=== PATIENT | female | born 1960 | race Caucasian/White ===

== ENCOUNTER 2016-12-02 01:11 | Emergency (ER) | payer BC ==
[~2016-12-02] VITALS: Ht 154.9 cm; Wt 77.0 kg
[~2016-12-02 01:11] MED LIST: ALBUTEROL SUL0.083 % IN; BACLOFEN10 MG PO; BUPAP 50-300 MG1 TAB PO; BUTALBITAL/APAP1 CAP PO; DULERA1 AE1 IN; DYMISTA1 SPR; FAMOTIDINE20 M1 PO; FLUTICASONE50 MCG; GABAPENTIN300 MG PO; KEFLEX500 M1 PO; LAMICTAL ODT50 MG PO; LAMOTRIGINE ODT50 MG PO; LORTAB 10-325 M1 TAB PO; MEDDOSEPAK PO; NAPROSYN500 MG PO; PANTOPRAZOLE SO40 MG PO; PREDNISONE20 MG PO; PROAIR HFA IN; PROPANOLOL PO; ROBITUSSIN AC10 ML PO; SINGULAIR PO; TOPAMAX50 M1 PO; TOPAMAX50 MG PO; VALTREX500 MG PO; XOPENEX HFA IN; ZOFRAN ODT4 MG PO; ZOFRAN ODT4 MG SL
[2016-12-02] MEDS ORDERED: INDERAL 40MG TA40 MG PO (01:34)
[2016-12-02] MEDS ORDERED: PEPCID AC20 MG PO (01:36)
[2016-12-02 02:18] LABS: URINE BILIRUBIN - DIPSTICK NEGATIVE (NEGATIVE); URINE BLOOD DIPSTICK MODERATE (NEGATIVE); URINE CLARITY TURBID; URINE COLOR RED; URINE GLUCOSE - DIPSTICK NEGATIVE (NEGATIVE); URINE KETONE NEGATIVE (NEGATIVE); URINE NITRITE - DIPSTICK NEGATIVE (Negative); URINE PROTEIN - DIPSTICK 100 mg/dL (NEG-TRACE); URINE SPECIFIC GRAVITY >=1.030; URINE UROBILINOGEN - DIPSTICK 0.2 E.U./dL (0.2)
[2016-12-02 02:19] LABS: URINE LEUK ESTERASE SMALL (NEGATIVE)
[2016-12-02 02:21] LABS: URINE BACTERIA FEW hpf; URINE RBC >100 RBC/hpf (0-5); URINE SQUAMOUS EPITHELIAL CELL FEW EPI/hpf (0-FEW)
[2016-12-02] MEDS ORDERED: PYRIDIUM200 MG PO (02:39)
[2016-12-02] MEDS ORDERED: CIPROFLOXACN500 MG PO (02:39)
[2016-12-02 02:50] VITALS: BP 136/95
[2016-12-02] MEDS ORDERED: ZOFRAN ODT4 MG PO (02:53)
== END 2016-12-02 02:50 | disposition home or self-care (01) | DRG 690 ==
LOC: ED 01:11
PROVIDERS: Emergency Medicine
DX: N39.0 Urinary tract infection, site not specified (principal); B96.20 Unspecified Escherichia coli [E. coli] as the cause of diseases classified elsewhere; R30.0 Dysuria; R35.0 Frequency of micturition

== ENCOUNTER 2017-03-17 17:28 | Emergency (ER) | payer BC ==
[~2017-03-17] VITALS: Ht 154.9 cm; Wt 77.0 kg
[~2017-03-17 17:28] MED LIST changes: +CIPROFLOXACN500 MG PO; +INDERAL 40MG TA40 MG PO; +PEPCID AC20 MG PO; +PYRIDIUM200 MG PO
[2017-03-17] MEDS ORDERED: NAPROSYN500 MG PO (18:25)
[2017-03-17] MEDS ORDERED: NORCO1 TA1 PO (18:25)
== END 2017-03-17 18:43 | disposition home or self-care (01) | DRG 554 ==
LOC: ED 17:28
DX: M19.041 Primary osteoarthritis, right hand (principal); I10 Essential (primary) hypertension; J45.909 Unspecified asthma, uncomplicated; G50.0 Trigeminal neuralgia

== ENCOUNTER 2017-08-06 13:29 | Emergency (ER) | payer OTHER, BC ==
[~2017-08-06] VITALS: Ht 154.9 cm; Wt 74.0 kg
[~2017-08-06 13:29] MED LIST changes: +NORCO1 TA1 PO
[2017-08-06] MEDS ORDERED: BENZONATATE200 MG PO (14:02)
[2017-08-06] MEDS ORDERED: BLOOD PRESSURE (14:03)
[2017-08-06 14:20] LABS: HEMATOCRIT 43.2 % (37.0-47.0); HEMOGLOBIN 14.3 g/dl (12.0-16.0); IMMATURE GRANULOCYTES 0.3 % (0.0-1.0); MEAN CELL VOLUME 91.7 fL CALC (80.0-100.0); MEAN CORPUSCULAR HGB 30.4 pG CALC (26.0-32.0); MEAN CORPUSCULAR HGB CONC 33.1 g/L CALC (32.0-36.0); NEUT# 3.68 thou/uL (2.00-7.15); RED BLOOD COUNT 4.71 mill/uL (4.20-5.60); RED CELL DISTRI WIDTH 13.6 % (11.5-15.5)
[2017-08-06 14:34] LABS: ANION GAP 17 (6-22 (CALC)); BUN 23 mg/dL (7-17); BUN/CREATININE RATIO 27 (12-20 (CALC)); CALCIUM 10.1 mg/dL (8.4-10.2); CARBON DIOXIDE 25 mmol/l (22-30); CHLORIDE 105 mmol/l (95-108); CREATININE 0.8 mg/dL (0.5-1.0); GFR > 60 ML/MIN (>=60 (CALC)); GFR FOR AFR.AMER. > 60 ML/MIN (>=60 (CALC)); GLUCOSE 157 mg/dL (65-105); POTASSIUM 3.5 mmol/l (3.5-5.1); SODIUM 144 mmol/l (137-146)
[2017-08-06] MEDS ORDERED: PREDNISONE50 MG PO (16:53)
[2017-08-06 17:15] VITALS: BP 122/65
== END 2017-08-06 17:15 | disposition home or self-care (01) | DRG 916 ==
LOC: ED 13:29
PROVIDERS: Family Medicine
DX: T78.2XXA Anaphylactic shock, unspecified, initial encounter (principal); R06.02 Shortness of breath; T78.49XA Other allergy, initial encounter; X58.XXXA Exposure to other specified factors, initial encounter; R11.0 Nausea; R50.9 Fever, unspecified

== ENCOUNTER 2017-11-17 15:48 | Emergency (ER) | payer BC ==
[~2017-11-17] VITALS: Ht 154.9 cm; Wt 74.4 kg
[~2017-11-17 15:48] MED LIST changes: +BENZONATATE200 MG PO; +BLOOD PRESSURE; +PREDNISONE50 MG PO
[2017-11-17] MEDS ORDERED: CIMETIDINE400 M1 PO (15:59)
[2017-11-17] MEDS ORDERED: PREDNISONE50 MG PO (15:59)
[2017-11-17] MEDS ORDERED: BENADRYL 50MG C50 MG PO (15:59)
[2017-11-17] MEDS ORDERED: ALBUTEROL SUL0.083 % IN (17:01)
[2017-11-17 17:25] VITALS: BP 137/92
== END 2017-11-17 17:25 | disposition home or self-care (01) | DRG 206 ==
LOC: ED 15:48
DX: J68.3 Other acute and subacute respiratory conditions due to chemicals, gases, fumes and vapors (principal); I10 Essential (primary) hypertension; J45.909 Unspecified asthma, uncomplicated; K21.9 Gastro-esophageal reflux disease without esophagitis

== ENCOUNTER 2018-01-22 03:33 | Emergency (ER) | payer BC ==
[~2018-01-22] VITALS: Ht 154.9 cm; Wt 72.8 kg
[~2018-01-22 03:33] MED LIST changes: +BENADRYL 50MG C50 MG PO; +CIMETIDINE400 M1 PO
[2018-01-22] MEDS ORDERED: ZYRTEC10 MG PO (03:47)
[2018-01-22] MEDS ORDERED: TIZANIDINE4 MG PO (03:47)
[2018-01-22 04:24] LABS: HEMATOCRIT 43.5 % (37.0-47.0); HEMOGLOBIN 14.4 g/dl (12.0-16.0); IMMATURE GRANULOCYTES 0.3 % (0.0-1.0); MEAN CELL VOLUME 92.4 fL CALC (80.0-100.0); MEAN CORPUSCULAR HGB 30.6 pG CALC (26.0-32.0); MEAN CORPUSCULAR HGB CONC 33.1 g/L CALC (32.0-36.0); NEUT# 4.19 thou/uL (2.00-7.15); RED BLOOD COUNT 4.71 mill/uL (4.20-5.60)
--- NOTE | 2018-01-22 04:27 | NUR ---
BREATHING TREATMENT GIVEN. BREATHING TECH. FOR GOOD DEPOSITION TO THE LUNGS. SPO2 98% ON RA, H RATE 78.
[2018-01-22] MEDS ORDERED: PREDNISONE10 MG PO (05:14)
[2018-01-22] MEDS ORDERED: TESSALON PERLE100 MG PO (05:23)
[2018-01-22 05:33] VITALS: BP 139/87
== END 2018-01-22 05:33 | disposition home or self-care (01) | DRG 153 ==
LOC: ED 03:33
PROVIDERS: Family Medicine
DX: J06.9 Acute upper respiratory infection, unspecified (principal); J45.901 Unspecified asthma with (acute) exacerbation; I10 Essential (primary) hypertension; K21.9 Gastro-esophageal reflux disease without esophagitis

== ENCOUNTER 2018-08-03 14:57 | Emergency (ER) | payer OTHER, BC ==
[~2018-08-03] VITALS: Ht 154.9 cm; Wt 75.0 kg
[~2018-08-03 14:57] MED LIST changes: +PREDNISONE10 MG PO; +TESSALON PERLE100 MG PO; +TIZANIDINE4 MG PO; +ZYRTEC10 MG PO
[2018-08-03 15:30] LABS: HEMATOCRIT 46.2 % (37.0-47.0); HEMOGLOBIN 15.4 g/dl (12.0-16.0); IMMATURE GRANULOCYTES 0.4 % (0.0-5.0); MEAN CELL VOLUME 94.3 fL CALC (80.0-100.0); MEAN CORPUSCULAR HGB 31.4 pG CALC (26.0-32.0); MEAN CORPUSCULAR HGB CONC 33.3 g/L CALC (32.0-36.0); NEUT# 2.41 thou/uL (2.00-7.15); RED BLOOD COUNT 4.9 mill/uL (4.20-5.60); RED CELL DISTRI WIDTH 13.2 % (11.5-15.5)
[2018-08-03 15:40] LABS: BUN 23 mg/dL (7-17); BUN/CREATININE RATIO 26 (12-20 (CALC)); CARBON DIOXIDE 24 mmol/l (22-30); CHLORIDE 109 mmol/l (95-108); CREATININE 0.9 mg/dL (0.5-1.0); GFR > 60 ML/MIN (>=60 (CALC)); GFR FOR AFR.AMER. > 60 ML/MIN (>=60 (CALC)); SODIUM 144 mmol/l (137-146)
[2018-08-03 15:41] LABS: ANION GAP 15 (6-22 (CALC)); POTASSIUM 4.4 mmol/l (3.5-5.1)
[2018-08-03 16:55] VITALS: BP 114/81
== END 2018-08-03 17:00 | disposition home or self-care (01) | DRG 916 ==
LOC: ED 14:57
PROVIDERS: Family Medicine
DX: T78.2XXA Anaphylactic shock, unspecified, initial encounter (principal); T78.49XA Other allergy, initial encounter; R06.02 Shortness of breath; Y92.219 Unspecified school as the place of occurrence of the external cause; Y99.0 Civilian activity done for income or pay

== ENCOUNTER 2018-08-27 12:20 | Emergency (ER) | payer BC ==
[~2018-08-27] VITALS: Ht 154.9 cm; Wt 77.0 kg
[2018-08-27 13:04] LABS: HEMATOCRIT 43.6 % (37.0-47.0); HEMOGLOBIN 14.5 g/dl (12.0-16.0); IMMATURE GRANULOCYTES 0.5 % (0.0-5.0); MEAN CELL VOLUME 95.2 fL CALC (80.0-100.0); MEAN CORPUSCULAR HGB 31.7 pG CALC (26.0-32.0); MEAN CORPUSCULAR HGB CONC 33.3 g/L CALC (32.0-36.0); NEUT# 2.14 thou/uL (2.00-7.15); RED BLOOD COUNT 4.58 mill/uL (4.20-5.60); RED CELL DISTRI WIDTH 13.2 % (11.5-15.5)
[2018-08-27 13:21] LABS: ALBUMIN 4.5 g/dL (3.2-5.0); ALKALINE PHOSPHATASE 110 u/l (38-126); ANION GAP 15 (6-22 (CALC)); BILIRUBIN, TOTAL 0.6 mg/dL (0.0-1.4); BUN 18 mg/dL (7-17); BUN/CREATININE RATIO 19 (12-20 (CALC)); CARBON DIOXIDE 24 mmol/l (22-30); CHLORIDE 106 mmol/l (95-108); CREATININE 0.9 mg/dL (0.5-1.0); GFR > 60 ML/MIN (>=60 (CALC)); GFR FOR AFR.AMER. > 60 ML/MIN (>=60 (CALC)); POTASSIUM 3.7 mmol/l (3.5-5.1); SGOT/AST 30 u/l (14-36); SODIUM 142 mmol/l (137-146); TOTAL PROTEIN 7.2 g/dL (6.3-8.2)
[2018-08-27 14:32] LABS: URINE BILIRUBIN - DIPSTICK NEGATIVE (NEGATIVE); URINE BLOOD DIPSTICK LARGE (NEGATIVE); URINE COLOR YELLOW; URINE GLUCOSE - DIPSTICK NEGATIVE (NEGATIVE); URINE KETONE NEGATIVE (NEGATIVE); URINE LEUK ESTERASE NEGATIVE (NEGATIVE); URINE NITRITE - DIPSTICK NEGATIVE (Negative); URINE PH 6.5 (4.5-8.0); URINE PROTEIN - DIPSTICK NEGATIVE (NEG-TRACE); URINE SPECIFIC GRAVITY <=1.005; URINE UROBILINOGEN - DIPSTICK 0.2 E.U./dL (0.2)
[2018-08-27 14:53] LABS: URINE RBC TNTC RBC/hpf (0-5); URINE SQUAMOUS EPITHELIAL CELL FEW EPI/hpf (0-FEW)
[2018-08-27] MEDS ORDERED: LISINOPRIL20 MG PO (15:19)
[2018-08-27] MEDS ORDERED: LOPRESSOR25 M1 PO (15:19)
[2018-08-27] MEDS ORDERED: SOMA CPD PO (15:19)
[2018-08-27 15:29] VITALS: BP 139/87
== END 2018-08-27 15:37 | disposition home or self-care (01) | DRG 305 ==
LOC: ED 12:20
PROVIDERS: Emergency Medicine
DX: I10 Essential (primary) hypertension (principal); R51 Headache; J45.909 Unspecified asthma, uncomplicated; G50.0 Trigeminal neuralgia; K21.9 Gastro-esophageal reflux disease without esophagitis

== ENCOUNTER → 2018-09-14 | Outpatient (REF) | payer SELFPAY ==
[~2018-09-14] MED LIST changes: +ALLERGY RE50 MCG/ACT; +FIORICET PO; +LISINOPRIL20 MG PO; +LOPRESSOR25 M1 PO; +METOPROL TAR25 M1 PO; +OMEPRAZOLE20 M1 PO; +PROMETHAZINE12.5 MG PO; +SOMA CPD PO
[2018-09-14 17:21] LABS: HEMATOCRIT 45.4 % (37.0-47.0); HEMOGLOBIN 14.6 g/dl (12.0-16.0); IMMATURE GRANULOCYTES 0.2 % (0.0-5.0); MEAN CELL VOLUME 96.4 fL CALC (80.0-100.0); MEAN CORPUSCULAR HGB CONC 32.2 g/L CALC (32.0-36.0); NEUT# 3.05 thou/uL (2.00-7.15); RED BLOOD COUNT 4.71 mill/uL (4.20-5.60); RED CELL DISTRI WIDTH 12.2 % (11.5-15.5)
[2018-09-14 17:45] LABS: ANION GAP 17 (6-22 (CALC)); BUN 20 mg/dL (7-17); BUN/CREATININE RATIO 24 (12-20 (CALC)); CARBON DIOXIDE 20 mmol/l (22-30); CHLORIDE 110 mmol/l (95-108); CREATININE 0.8 mg/dL (0.5-1.0); GFR > 60 ML/MIN (>=60 (CALC)); GFR FOR AFR.AMER. > 60 ML/MIN (>=60 (CALC)); POTASSIUM 4.4 mmol/l (3.5-5.1); SODIUM 143 mmol/l (137-146)
== END | disposition home or self-care (01) | DRG 392 ==
LOC: LAB 15:47
PROVIDERS: ATTEND Nurse Practitioner Family
DX: R10.84 Generalized abdominal pain (principal); R19.7 Diarrhea, unspecified; I10 Essential (primary) hypertension

== ENCOUNTER → 2018-09-19 | Outpatient (REF) | payer SELFPAY | END | disposition home or self-care (01) | DRG 392 | LOC: CT 09:21 | PROVIDERS: ATTEND Nurse Practitioner Family | DX: R10.9 Unspecified abdominal pain (principal); R10.819 Abdominal tenderness, unspecified site; N20.0 Calculus of kidney ==

== ENCOUNTER → 2018-09-28 | Outpatient (REF) | payer BC ==
[~2018-09-28] VITALS: Ht 154.9 cm; Wt 74.8 kg
[2018-09-28 14:04] VITALS: BP 122/87
== END | disposition home or self-care (01) | DRG 951 ==
LOC: ORM 11:15 → PO 11:28
PROVIDERS: ATTEND Surgery
DX: Z01.818 Encounter for other preprocedural examination (principal); K62.5 Hemorrhage of anus and rectum; R10.9 Unspecified abdominal pain; Z86.14 Personal history of Methicillin resistant Staphylococcus aureus infection; J45.998 Other asthma; I10 Essential (primary) hypertension; N20.0 Calculus of kidney; G43.909 Migraine, unspecified, not intractable, without status migrainosus; K21.9 Gastro-esophageal reflux disease without esophagitis; Z90.49 Acquired absence of other specified parts of digestive tract; Z98.890 Other specified postprocedural states; Z72.89 Other problems related to lifestyle; Z91.09 Other allergy status, other than to drugs and biological substances; R31.9 Hematuria, unspecified

== ENCOUNTER 2018-09-30 07:57 | Day surgery (SDC) | payer BC ==
[2018-09-30 11:40] VITALS: BP 104/66
== END 2018-09-30 12:20 | disposition home or self-care (01) | DRG 379 ==
LOC: ENDO 07:57 → ORM 09:00 → ENDO 09:00
PROVIDERS: ATTEND Surgery
PROC: 0DBM8ZX Excision of Descending Colon, Via Natural or Artificial Opening Endoscopic, Diagnostic (ICD-10-PCS; principal; 2018-09-30)
PROC: 0DJ08ZZ Inspection of Upper Intestinal Tract, Via Natural or Artificial Opening Endoscopic (ICD-10-PCS; 2018-09-30)
PROC: 05HB33Z Insertion of Infusion Device into Right Basilic Vein, Percutaneous Approach (ICD-10-PCS; 2018-09-30)
PROC: B51MZZA Fluoroscopy of Right Upper Extremity Veins, Guidance (ICD-10-PCS; 2018-09-30)
DX: K57.33 Diverticulitis of large intestine without perforation or abscess with bleeding (principal); K64.8 Other hemorrhoids; K64.4 Residual hemorrhoidal skin tags; K58.2 Mixed irritable bowel syndrome; K21.9 Gastro-esophageal reflux disease without esophagitis; K44.9 Diaphragmatic hernia without obstruction or gangrene; I10 Essential (primary) hypertension
CPT/HCPCS: J0131

== ENCOUNTER 2020-07-20 10:45 | Emergency (ER) | payer BC ==
[~2020-07-20] VITALS: Ht 154.9 cm; Wt 75.0 kg
[2020-07-20 12:32] LABS: IMMATURE GRANULOCYTES 0.2 % (0.0-5.0); MEAN CELL VOLUME 91.3 fL CALC (80.0-100.0); MEAN CORPUSCULAR HGB 28.6 pG CALC (26.0-32.0); MEAN CORPUSCULAR HGB CONC 31.3 g/dL CAL (32.0-36.0); NEUT# 2.41 thou/uL (2.00-7.15); RED BLOOD COUNT 3.78 mill/uL (4.20-5.60); RED CELL DISTRI WIDTH 14.2 % (11.5-15.5)
[2020-07-20 12:37] LABS: URINE BILIRUBIN - DIPSTICK NEGATIVE (NEGATIVE); URINE BLOOD DIPSTICK NEGATIVE (NEGATIVE); URINE COLOR YELLOW; URINE GLUCOSE - DIPSTICK NEGATIVE (NEGATIVE); URINE KETONE NEGATIVE (NEGATIVE); URINE LEUK ESTERASE NEGATIVE (NEGATIVE); URINE NITRITE - DIPSTICK NEGATIVE (Negative); URINE PH 7.5 (4.5-8.0); URINE PROTEIN - DIPSTICK NEGATIVE (NEG-TRACE); URINE UROBILINOGEN - DIPSTICK 0.2 E.U./dL (0.2)
[2020-07-20 12:39] LABS: HEMATOCRIT 34.5 % (37.0-47.0); HEMOGLOBIN 10.8 g/dl (12.0-16.0)
[2020-07-20] MEDS ORDERED: NORVASC5 M1 PO (12:44)
[2020-07-20 13:03] LABS: ALBUMIN 4.1 g/dL (3.2-5.0); ALKALINE PHOSPHATASE 93 u/l (38-126); ANION GAP 10 (6-22 (CALC)); BUN 19 mg/dL (7-17); BUN/CREATININE RATIO 21 (12-20 (CALC)); CARBON DIOXIDE 25 mmol/l (22-30); CHLORIDE 112 mmol/l (95-108); CREATININE 0.9 mg/dL (0.5-1.0); GFR > 60 ML/MIN (>=60 (CALC)); GFR FOR AFR.AMER. > 60 ML/MIN (>=60 (CALC)); SGOT/AST 20 u/l (14-36); SODIUM 141 mmol/l (137-146); TOTAL PROTEIN 6.7 g/dL (6.3-8.2)
[2020-07-20 13:07] LABS: BILIRUBIN, TOTAL 0.2 mg/dL (0.0-1.4)
[2020-07-20 13:13] LABS: MYOGLOBIN 26 ng/mL (0 - 62)
[2020-07-20] MEDS ORDERED: FIORICET PO (14:02)
[2020-07-20] MEDS ORDERED: ONDANSETRON4 MG PO (14:20)
[2020-07-20 14:25] VITALS: BP 95/52
== END 2020-07-20 14:25 | disposition home or self-care (01) | DRG 103 ==
LOC: ED 10:45
PROVIDERS: Emergency Medicine
DX: G43.909 Migraine, unspecified, not intractable, without status migrainosus (principal); I10 Essential (primary) hypertension; G50.0 Trigeminal neuralgia; K21.9 Gastro-esophageal reflux disease without esophagitis; Z20.822 Contact with and (suspected) exposure to COVID-19

== ENCOUNTER 2022-03-30 15:19 | Inpatient (IN) | payer BC ==
[~2022-03-30] VITALS: Ht 154.9 cm; Wt 75.0 kg
[2022-03-30] VITALS (16 sets, daily range): BP systolic 109–133; BP diastolic 52–70
[~2022-03-30 15:19] MED LIST changes: -LAMOTRIGINE ODT50 MG PO; +LAMOTRIGINE100 MG PO; +NORVASC5 M1 PO; +OMEPRAZOLE10 MG PO; -OMEPRAZOLE20 M1 PO; +ONDANSETRON4 MG PO
[2022-03-30 17:20] LABS: IMMATURE GRANULOCYTES 0.1 % (0.0-5.0); MEAN CELL VOLUME 74.4 fL CALC (80.0-100.0); MEAN CORPUSCULAR HGB 22.3 pG CALC (26.0-32.0); NEUT# 4.6 thou/uL (2.00-7.15); RED BLOOD COUNT 3.09 mill/uL (4.20-5.60); RED CELL DISTRI WIDTH 15.6 % (11.5-15.5)
[2022-03-30 17:25] LABS: HEMOGLOBIN 6.9 g/dl (12.0-16.0)
[2022-03-30 17:34] LABS: PROTHROMBIN TIME 10.1 SECONDS (9.0-12.5)
[2022-03-30 17:38] LABS: ALBUMIN 4.5 g/dL (3.2-5.0); ALKALINE PHOSPHATASE 87 u/l (38-126); BUN 12 mg/dL (7-17); BUN/CREATININE RATIO 16 (12-20 (CALC)); CARBON DIOXIDE 21 mmol/l (22-30); CHLORIDE 104 mmol/l (95-108); CREATININE 0.7 mg/dL (0.5-1.0); GFR FOR AFR.AMER. > 60 ML/MIN (>=60 (CALC)); GFR OTHER RACES > 60 ML/MIN (>=60 (CALC)); LIPASE 73 u/l (23-300); SGOT/AST 21 u/l (14-36)
[2022-03-30 17:44] LABS: ANION GAP 14 (6-22 (CALC)); BILIRUBIN, TOTAL 0.1 mg/dL (0.0-1.4); SODIUM 135 mmol/l (137-146)
[2022-03-30 18:23] LABS: URINE BILIRUBIN - DIPSTICK NEGATIVE (NEGATIVE); URINE BLOOD DIPSTICK NEGATIVE (NEGATIVE); URINE COLOR YELLOW; URINE GLUCOSE - DIPSTICK NEGATIVE (NEGATIVE); URINE KETONE NEGATIVE (NEGATIVE); URINE LEUK ESTERASE NEGATIVE (NEGATIVE); URINE PROTEIN - DIPSTICK NEGATIVE (NEG-TRACE); URINE UROBILINOGEN - DIPSTICK 0.2 E.U./dL (0.2)
[2022-03-30 18:28] LABS: URINE NITRITE - DIPSTICK NEGATIVE (Negative)
[2022-03-30] MEDS ORDERED: SUCRALFATE1 GM PO (21:12)
[2022-03-30] MEDS ORDERED: LISINOPRIL10 MG PO (21:13)
[2022-03-30] MEDS ORDERED: TIZANIDINE2 MG PO (21:14)
[2022-03-30] MEDS ORDERED: BUTALBITAL/ACET1 CA1 PO (21:15)
[2022-03-30] MEDS ORDERED: PROMETHAZINE HY25 M1 PO (21:17)
[2022-03-31] VITALS (9 sets, daily range): BP systolic 96–122; BP diastolic 45–67
[2022-03-31 06:01] LABS: HEMATOCRIT 27.5 % (37.0-47.0); HEMOGLOBIN 8.6 g/dl (12.0-16.0); IMMATURE GRANULOCYTES 0.2 % (0.0-5.0); MEAN CELL VOLUME 76.2 fL CALC (80.0-100.0); MEAN CORPUSCULAR HGB 23.8 pG CALC (26.0-32.0); MEAN CORPUSCULAR HGB CONC 31.3 g/dL CAL (32.0-36.0); NEUT# 2.99 thou/uL (2.00-7.15); RED BLOOD COUNT 3.61 mill/uL (4.20-5.60); RED CELL DISTRI WIDTH 15.9 % (11.5-15.5)
[2022-03-31 06:14] LABS: ALBUMIN 4.1 g/dL (3.2-5.0); ALKALINE PHOSPHATASE 79 u/l (38-126); ANION GAP 11 (6-22 (CALC)); BILIRUBIN, TOTAL 0.1 mg/dL (0.0-1.4); BUN 9 mg/dL (7-17); BUN/CREATININE RATIO 14 (12-20 (CALC)); CARBON DIOXIDE 22 mmol/l (22-30); CHLORIDE 109 mmol/l (95-108); CREATININE 0.6 mg/dL (0.5-1.0); GFR FOR AFR.AMER. > 60 ML/MIN (>=60 (CALC)); GFR OTHER RACES > 60 ML/MIN (>=60 (CALC)); POTASSIUM 3.7 mmol/l (3.5-5.1); SGOT/AST 21 u/l (14-36); SODIUM 139 mmol/l (137-146); TOTAL PROTEIN 6.7 g/dL (6.3-8.2)
[2022-03-31 10:20] LABS: HEMATOCRIT 27.4 % (37.0-47.0); HEMOGLOBIN 8.5 g/dl (12.0-16.0)
[2022-03-31] MEDS ORDERED: PROVENTIL HFA IN (11:30)
[2022-04-01] VITALS (12 sets, daily range): BP systolic 107–134; BP diastolic 55–89
[2022-04-01 07:43] LABS: HEMATOCRIT 29.2 % (37.0-47.0); HEMOGLOBIN 8.9 g/dl (12.0-16.0); IMMATURE GRANULOCYTES 0.8 % (0.0-5.0); MEAN CELL VOLUME 76.8 fL CALC (80.0-100.0); MEAN CORPUSCULAR HGB 23.4 pG CALC (26.0-32.0); MEAN CORPUSCULAR HGB CONC 30.5 g/dL CAL (32.0-36.0); RED BLOOD COUNT 3.8 mill/uL (4.20-5.60); RED CELL DISTRI WIDTH 15.8 % (11.5-15.5)
[2022-04-01 08:08] LABS: ALBUMIN 4.3 g/dL (3.2-5.0); ALKALINE PHOSPHATASE 81 u/l (38-126); ANION GAP 12 (6-22 (CALC)); BILIRUBIN, TOTAL 0.1 mg/dL (0.0-1.4); BUN 5 mg/dL (7-17); BUN/CREATININE RATIO 8 (12-20 (CALC)); CARBON DIOXIDE 23 mmol/l (22-30); CHLORIDE 107 mmol/l (95-108); CREATININE 0.6 mg/dL (0.5-1.0); GFR FOR AFR.AMER. > 60 ML/MIN (>=60 (CALC)); GFR OTHER RACES > 60 ML/MIN (>=60 (CALC)); POTASSIUM 3.8 mmol/l (3.5-5.1); SGOT/AST 24 u/l (14-36); SODIUM 137 mmol/l (137-146); TOTAL PROTEIN 6.8 g/dL (6.3-8.2)
[2022-04-02 05:12] VITALS: BP 106/43
[2022-04-02 06:37] LABS: HEMATOCRIT 27.1 % (37.0-47.0); HEMOGLOBIN 8.4 g/dl (12.0-16.0); MEAN CELL VOLUME 77.2 fL CALC (80.0-100.0); MEAN CORPUSCULAR HGB 23.9 pG CALC (26.0-32.0); RED BLOOD COUNT 3.51 mill/uL (4.20-5.60)
[2022-04-02 06:40] VITALS: BP 126/62
[2022-04-02 07:14] LABS: ANION GAP 11 (6-22 (CALC)); BUN 6 mg/dL (7-17); BUN/CREATININE RATIO 10 (12-20 (CALC)); CARBON DIOXIDE 23 mmol/l (22-30); CHLORIDE 106 mmol/l (95-108); CREATININE 0.6 mg/dL (0.5-1.0); GFR FOR AFR.AMER. > 60 ML/MIN (>=60 (CALC)); GFR OTHER RACES > 60 ML/MIN (>=60 (CALC)); POTASSIUM 3.8 mmol/l (3.5-5.1); SODIUM 136 mmol/l (137-146)
[2022-04-02 10:49] VITALS: BP 114/58
[2022-04-02] MEDS ORDERED: ZOFRAN4 MG/TAB SL (12:43)
[2022-04-02] MEDS ORDERED: LORTAB5 PO (13:10)
== END 2022-04-02 14:52 | disposition home or self-care (01) | DRG 812 ==
LOC: ED 15:19 → ED-I 17:50 → ED 18:08 → MS2 18:08
PROVIDERS: Nurse Practitioner; ADMIT Internal Medicine; ATTEND Internal Medicine
PROC: 30243N1 Transfusion of Nonautologous Red Blood Cells into Central Vein, Percutaneous Approach (ICD-10-PCS; principal; 2022-03-30)
PROC: 30243N1 Transfusion of Nonautologous Red Blood Cells into Central Vein, Percutaneous Approach (ICD-10-PCS; 2022-03-30)
PROC: 05HM33Z Insertion of Infusion Device into Right Internal Jugular Vein, Percutaneous Approach (ICD-10-PCS; 2022-03-30)
PROC: B543ZZA Ultrasonography of Right Jugular Veins, Guidance (ICD-10-PCS; 2022-03-30)
PROC: 0DJD8ZZ Inspection of Lower Intestinal Tract, Via Natural or Artificial Opening Endoscopic (ICD-10-PCS; 2022-04-01)
PROC: 0DB48ZX Excision of Esophagogastric Junction, Via Natural or Artificial Opening Endoscopic, Diagnostic (ICD-10-PCS; 2022-04-01)
DX: D62 Acute posthemorrhagic anemia (principal); K92.2 Gastrointestinal hemorrhage, unspecified; K57.30 Diverticulosis of large intestine without perforation or abscess without bleeding; K64.8 Other hemorrhoids; K64.4 Residual hemorrhoidal skin tags; K44.9 Diaphragmatic hernia without obstruction or gangrene; K21.9 Gastro-esophageal reflux disease without esophagitis; I10 Essential (primary) hypertension; J45.909 Unspecified asthma, uncomplicated; G43.909 Migraine, unspecified, not intractable, without status migrainosus; G50.8 Other disorders of trigeminal nerve; Z20.822 Contact with and (suspected) exposure to COVID-19
CPT/HCPCS: J1756; P9016; S0164

== ENCOUNTER 2022-09-07 10:05 | Day surgery (SDC) | payer BC ==
[~2022-09-07] VITALS: Ht 154.9 cm; Wt 74.8 kg
[~2022-09-07 10:05] MED LIST changes: +BUTALBITAL/ACET1 CA1 PO; +LISINOPRIL10 MG PO; +LORTAB5 PO; +PROMETHAZINE HY25 M1 PO; +PROVENTIL HFA IN; +SUCRALFATE1 GM PO; +TIZANIDINE2 MG PO; +ZOFRAN4 MG/TAB SL
[2022-09-07 12:15] VITALS: BP 111/66
== END 2022-09-07 12:23 | disposition home or self-care (01) | DRG 392 ==
LOC: ENDO 10:05 → ORM 12:45 → ENDO 13:15 → ORM 14:30 → ENDO 14:30
PROVIDERS: ATTEND Internal Medicine Gastroenterology
PROC: 0DB48ZX Excision of Esophagogastric Junction, Via Natural or Artificial Opening Endoscopic, Diagnostic (ICD-10-PCS; principal; 2022-09-07)
PROC: 0DB78ZX Excision of Stomach, Pylorus, Via Natural or Artificial Opening Endoscopic, Diagnostic (ICD-10-PCS; 2022-09-07)
DX: K21.00 Gastro-esophageal reflux disease with esophagitis, without bleeding (principal); K29.70 Gastritis, unspecified, without bleeding; K44.9 Diaphragmatic hernia without obstruction or gangrene; Z80.0 Family history of malignant neoplasm of digestive organs

== ENCOUNTER 2024-03-10 10:45 | Emergency (ER) | payer BC ==
[~2024-03-10] VITALS: Ht 154.9 cm; Wt 74.8 kg
[2024-03-10] VITALS (15 sets, daily range): BP systolic 121–151; BP diastolic 70–90
[2024-03-10] MEDS ORDERED: KETOROLAC TROMETHAMINE 15 MG/ML SDV IV STA (11:50)
[2024-03-10] MEDS ORDERED: ONDANSETRON HCl 4 MG/2 ML SDV IV STA (11:50)
[2024-03-10] MEDS ORDERED: SODIUM CHLORIDE 0.9% 1,000 ML IV STA (11:57)
[2024-03-10 12:05] LABS: BASO% 0.6 % (0-3); EOS% 1.2 % (0-8); HEMATOCRIT 40.1 % (37.0-47.0); HEMOGLOBIN 12.4 g/dl (12.0-16.0); IMMATURE GRANULOCYTES 0.2 % (0.0-5.0); LYMPH% 34.4 % (15-41); MEAN CELL VOLUME 88.3 fL CALC (80.0-100.0); MEAN CORPUSCULAR HGB 27.3 pG CALC (26.0-32.0); MEAN CORPUSCULAR HGB CONC 30.9 g/dL CAL (32.0-36.0); MONO% 8.5 % (2-13); NEUT# 2.85 thou/uL (2.00-7.15); NEUT% 55.1 % (42-76); RED BLOOD COUNT 4.54 mill/uL (4.20-5.60); RED CELL DISTRI WIDTH 13.8 % (11.5-15.5)
[2024-03-10 12:06] LABS: URINE BILIRUBIN - DIPSTICK Negative (NEGATIVE); URINE BLOOD DIPSTICK Negative (NEGATIVE); URINE GLUCOSE - DIPSTICK 100 mg/dL (NEGATIVE); URINE KETONE Negative (NEGATIVE); URINE LEUK ESTERASE Negative (NEGATIVE); URINE PH 6.5 (4.5-8.0); URINE PROTEIN - DIPSTICK Negative (NEG-TRACE)
[2024-03-10 12:15] LABS: URINE COLOR Orange
[2024-03-10 12:16] LABS: URINE NITRITE - DIPSTICK Positive (Negative)
[2024-03-10 12:17] LABS: URINE WBC 0-2 WBC/hpf (0-5)
[2024-03-10 12:25] LABS: ALBUMIN 4.8 g/dL (3.2-5.0); CREATININE 0.7 mg/dL (0.5-1.0); POTASSIUM 3.6 mmol/l (3.5-5.1); TOTAL PROTEIN 8.1 g/dL (6.3-8.2)
[2024-03-10 12:26] LABS: BILIRUBIN, TOTAL 0.5 mg/dL (0.02-1.3)
[2024-03-10] MEDS ORDERED: MORPHINE SULFATE 4 MG/ML VIAL IV ONE (12:50)
[2024-03-10] MEDS ORDERED: DiphenhydrAMINE HCL 50 MG/ML SDV IV ONE (12:50)
[2024-03-10] MEDS ORDERED: METOCLOPRAMIDE HCL 10 MG/2 ML SDV IV ONE (12:50)
[2024-03-10] MEDS ORDERED: cefTRIAXone SODIUM 2 GM in SODIUM CHLORIDE 0.9% 100 ML IV ONE (13:45)
[2024-03-10] MEDS ORDERED: SEPTRA4001 PO (15:26)
== END 2024-03-10 15:45 | disposition home or self-care (01) | DRG 690 ==
LOC: ED 10:45
PROVIDERS: Emergency Medicine
DX: N12 Tubulo-interstitial nephritis, not specified as acute or chronic (principal); R19.03 Right lower quadrant abdominal swelling, mass and lump; I10 Essential (primary) hypertension; K21.9 Gastro-esophageal reflux disease without esophagitis; G50.8 Other disorders of trigeminal nerve; Z87.442 Personal history of urinary calculi; Z90.710 Acquired absence of both cervix and uterus

== ENCOUNTER 2024-09-03 10:17 | Emergency (ER) | payer BC ==
[~2024-09-03] VITALS: Ht 154.9 cm; Wt 70.3 kg
[~2024-09-03 10:17] MED LIST changes: +SEPTRA4001 PO
[2024-09-03 10:33] VITALS: BP 126/76
[2024-09-03] MEDS ORDERED: DiphenhydrAMINE HCL 50 MG/ML SDV IM ONE (10:45)
[2024-09-03] MEDS ORDERED: KETOROLAC TROMETHAMINE 30 MG/ML SDV IM ONE (10:45)
[2024-09-03] MEDS ORDERED: ONDANSETRON HCl 4 MG/2 ML SDV IV ONE (11:15)
[2024-09-03 11:21] LABS: URINE BLOOD DIPSTICK Trace-intact (NEGATIVE); URINE GLUCOSE - DIPSTICK 250 mg/dL (NEGATIVE); URINE KETONE 15 mg/dL (NEGATIVE); URINE LEUK ESTERASE Large (NEGATIVE); URINE NITRITE - DIPSTICK Positive (Negative); URINE PROTEIN - DIPSTICK >=300 mg/dL (NEG-TRACE); URINE SPECIFIC GRAVITY <=1.005; URINE UROBILINOGEN - DIPSTICK >=8.0 E.U./dL (0.2)
[2024-09-03 11:22] LABS: URINE COLOR Orange
[2024-09-03 11:23] LABS: URINE AMORPH SEDIMENT MANY hpf (NONE-FEW); URINE BACTERIA FEW hpf; URINE EPITHELIAL CELLS MODERATE EPI/hpf (0-FEW)
[2024-09-03 11:24] LABS: BASO% 0.8 % (0-3); EOS% 1.1 % (0-8); HEMATOCRIT 37.9 % (37.0-47.0); HEMOGLOBIN 11.4 g/dl (12.0-16.0); IMMATURE GRANULOCYTES 0.2 % (0.0-5.0); LYMPH% 33.4 % (15-41); MEAN CELL VOLUME 84.2 fL CALC (80.0-100.0); MEAN CORPUSCULAR HGB 25.3 pG CALC (26.0-32.0); MEAN CORPUSCULAR HGB CONC 30.1 g/dL CAL (32.0-36.0); MONO% 8.1 % (2-13); NEUT# 3.69 thou/uL (2.00-7.15); NEUT% 56.4 % (42-76); RED BLOOD COUNT 4.5 mill/uL (4.20-5.60); RED CELL DISTRI WIDTH 14.7 % (11.5-15.5)
[2024-09-03 11:30] VITALS: BP 133/75
[2024-09-03] MEDS ORDERED: ONDANSETRON 4 MG/TAB ODT SL ONE (11:30)
[2024-09-03 11:47] LABS: ALBUMIN 4.4 g/dL (3.2-5.0); BILIRUBIN, TOTAL 0.5 mg/dL (0.02-1.3); CREATININE 0.8 mg/dL (0.5-1.0); POTASSIUM 4.1 mmol/l (3.5-5.1); TOTAL PROTEIN 7.4 g/dL (6.3-8.2)
[2024-09-03] MEDS ORDERED: CIPROFLOXACN500 MG PO (12:08)
[2024-09-03] MEDS ORDERED: ZOFRAN4 MG/TAB PO (12:08)
[2024-09-03 12:22] VITALS: BP 133/75
== END 2024-09-03 12:32 | disposition home or self-care (01) | DRG 690 ==
LOC: ED 10:17
PROVIDERS: Family Medicine
DX: N39.0 Urinary tract infection, site not specified (principal); G43.909 Migraine, unspecified, not intractable, without status migrainosus; I10 Essential (primary) hypertension; Z86.16 Personal history of COVID-19
CPT/HCPCS: J1200